=== PATIENT | male | born 1975 | race Caucasian/White ===

== ENCOUNTER 2016-10-29 19:47 | Emergency (ER) | payer OTHER ==
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
[2016-10-29] MEDS ORDERED: HYDROmorphone 1 MG/ML 1 ML SYRINGE IM STA (21:07)
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
[2016-10-29] MEDS ORDERED: Acetaminophen-Codeine 300-30mg TAB PO STA (21:18)
[2016-10-29] MEDS ORDERED: ACET/COD 300 MG/30 MG STARTER PACK 6 TAB BTL PO STA (21:45)
[2016-10-29 21:50] VITALS: RESP 18
[2016-10-29 22:04] VITALS: BP 140/78; PULSE 64; TEMP 98
== END 2016-10-29 22:00 | disposition home or self-care (01) ==
LOC: EC 19:47
DX: S42.212A Unspecified displaced fracture of surgical neck of left humerus, initial encounter for closed fracture (principal); Z53.20 Procedure and treatment not carried out because of patient's decision for unspecified reasons; V86.39XA Unspecified occupant of other special all-terrain or other off-road motor vehicle injured in traffic accident, initial encounter; Y92.410 Unspecified street and highway as the place of occurrence of the external cause
CPT/HCPCS: 99283